=== PATIENT | female | born 1935 | race Caucasian/White ===

== ENCOUNTER → 2016-11-16 | Outpatient (CLI) | payer MEDICARE, OTHER ==
[~2016-11-16] MED LIST: ASPIRIN325 MG PO; BACITRACIN OINT30 GM TOP; CALCIUM 500 +1 EAC4 PO; MAXIVISION PO; NORCO 5-325 MG1 TAB PO; OCEAN NASAL) (A44 ML INH; RECLAST5 MG/100 M IV; TYLENOL325 MG PO; VITAMIN D-40400 UNIT PO
== END | disposition disaster alternative care site (69) ==
LOC: GRAD 11:59
DX: S12.100D Unspecified displaced fracture of second cervical vertebra, subsequent encounter for fracture with routine healing (principal); M47.812 Spondylosis without myelopathy or radiculopathy, cervical region